=== PATIENT | female | born 1970 | race Caucasian/White ===

== ENCOUNTER 2021-05-04 12:52 | Emergency (ER) | payer MEDICAID ==
[~2021-05-04] VITALS: Ht 162.6 cm; Wt 61.2 kg
[2021-05-04 14:00] VITALS: BP 103/84
[2021-05-04] MEDS ORDERED: HYDROcodone/APAP 5/325 MG 1 TAB TAB PO ONE (14:00)
[2021-05-04] MEDS ORDERED: ACET-8386 PO (15:02)
[2021-05-04 15:19] VITALS: BP 132/70
== END 2021-05-04 15:20 | disposition home or self-care (01) ==
LOC: MED 12:52
DX: R51.9 Headache, unspecified (principal); I10 Essential (primary) hypertension; D64.9 Anemia, unspecified; E07.9 Disorder of thyroid, unspecified; Z79.899 Other long term (current) drug therapy; Z48.00 Encounter for change or removal of nonsurgical wound dressing
CPT/HCPCS: 70450; 99284

== ENCOUNTER 2022-12-30 16:08 | Emergency (ER) | payer MEDICAID, OTHER ==
[~2022-12-30] VITALS: Ht 154.9 cm; Wt 48.5 kg
[~2022-12-30 16:08] MED LIST: ACET-8905 PO
[2022-12-30 16:57] VITALS: BP 90/55; PULSE 59; RESP 18; TEMP 97.9; O2SAT 97
[2022-12-30] MEDS ORDERED: MORPHINE SULFATE 4 MG/ML SYR IM ONE (17:20)
[2022-12-30] MEDS ORDERED: MORPHINE SULFATE 4 MG/ML SYR ONE (18:26)
[2022-12-30] MEDS ORDERED: TRAM-748 PO (19:16)
[2022-12-30 19:44] VITALS: BP 108/58; PULSE 61; RESP 16; TEMP 97.9; O2SAT 97
== END 2022-12-30 19:44 | disposition home or self-care (01) ==
LOC: MED 16:08
DX: M25.552 Pain in left hip (principal); E03.9 Hypothyroidism, unspecified; I12.9 Hypertensive chronic kidney disease with stage 1 through stage 4 chronic kidney disease, or unspecified chronic kidney disease; N18.9 Chronic kidney disease, unspecified; Z79.899 Other long term (current) drug therapy
CPT/HCPCS: 73502; 96372; 99283; J2270

== ENCOUNTER 2023-04-16 12:12 | Inpatient (IN) | payer OTHER ==
[~2023-04-16] VITALS: Ht 152.4 cm; Wt 49.4 kg
[~2023-04-16 12:12] MED LIST changes: +TRAM-748 PO
[2023-04-16 12:22] VITALS: BP 101/59; PULSE 59; RESP 18; TEMP 97.9; O2SAT 96
[2023-04-16 13:51] LABS: BASOPHILS % (AUTO) 0.2 % (0.0-2.0); HEMATOCRIT 33.9 % (36-48); HEMOGLOBIN 10.9 g/dL (12.0-16.0); LYMPHOCYTES # (AUTO) 0.6 K/uL (2.5-16.5); LYMPHOCYTES % (AUTO) 4.9 % (20.5-51.1); MEAN CORPUSCULAR HEMOGLOBIN 28 pg (27-31); MEAN CORPUSCULAR HGB CONC 32 g/dL (33-37); MEAN CORPUSCULAR VOLUME 85.6 fL (80-94); MONOCYTES # (AUTO) 0.3 K/uL (0.8-1.0); MONOCYTES % (AUTO) 2.4 % (1.7-9.3); NEUTROPHILS # (AUTO) 11.1 K/uL (1.8-7.7); NEUTROPHILS % (AUTO) 92.5 % (42.2-75.2); PLATELET COUNT (AUTO) 375 K/uL (140-450); RED BLOOD CELL COUNT(AUTO) 3.96 MIL/uL (4.20-5.40); RED CELL DISTRIBUTION WIDTH 14.9 % (11.6-13.7)
[2023-04-16 14:08] LABS: INR 0.93 (0.8-1.2); PARTIAL THROMBOPLASTIN TIME 29.1 secs (22-35.6); PROTHROMBIN TIME 9.8 secs (10.8-13.4)
[2023-04-16 14:20] LABS: ANION GAP 14.5 (8-16); CALCIUM 8.6 mg/dL (8.5-10.1); CARBON DIOXIDE 24.8 mmol/L (21-32); CREATININE 2.2 mg/dL (0.6-1.3); POTASSIUM 3.3 mmol/L (3.5-5.1)
[2023-04-16 14:21] LABS: APPEARANCE,URINE SL CLOUDY (CLEAR); BILIRUBIN,URINE NEGATIVE (NEGATIVE); BLOOD, URINE NEGATIVE (NEGATIVE); COLOR,URINE YELLOW (YELLOW); LEUKOCYTE ESTERASE ,URINE 2+ (NEGATIVE); NITRITE, URINE NEGATIVE (NEGATIVE); PROTEIN,URINE TRACE (NEGATIVE); UGLUCOSE NEGATIVE (NEGATIVE); UROBILINOGEN,URINE 0.2 EU/dL (0.2 - 1)
[2023-04-16 14:35] LABS: BACTERIA,URINE >30 (MANY) /HPF (None Seen); RBC,URINE 0-5 /HPF (0-5); SQUAMOUS EPITHELIAL CELL,UR 0-3 (FEW) /LPF (0-3 (FEW)); WBC,URINE 16-25 (MOD) /HPF (0-5)
[2023-04-16 16:22] VITALS: O2SAT 93
[2023-04-16] MEDS ORDERED: cefTRIAXone 1,000 MG VIAL ONE (16:49)
[2023-04-16] MEDS ORDERED: ONDANSETRON 4 MG/2 ML VIAL IVP PRN (16:55)
[2023-04-16] MEDS ORDERED: KCL 20 MEQ IN 100 mL PREMIX 200 ML IV PRN (16:55)
[2023-04-16] MEDS ORDERED: POTASSIUM CHLORIDE 10 MEQ TABER PO PRN (16:55)
[2023-04-16] MEDS ORDERED: ACETAMINOPHEN 325 MG TAB PO PRN (16:55)
[2023-04-16] MEDS ORDERED: HYDROcodone/APAP 5/325 MG 1 TAB TAB PO PRN (16:55)
[2023-04-16] MEDS ORDERED: MAG SULF 2000 MG/WATER PREMIX 50 ML IV PRN (16:55)
[2023-04-16] MEDS ORDERED: MORPHINE SULFATE 2 MG/ML SYR IVP PRN (16:55)
[2023-04-16] MEDS ORDERED: MAGNESIUM OXIDE 400 MG TAB PO PRN (16:55)
[2023-04-16] MEDS ORDERED: TRAZ-471 PO (17:07)
[2023-04-16] MEDS ORDERED: [UNRECOGNIZED DRUG - CODE] PO (17:07)
[2023-04-16] MEDS ORDERED: LIDO1ADH38 TP (17:07)
[2023-04-16] MEDS ORDERED: OXYB15TA2 PO (17:07)
[2023-04-16] MEDS ORDERED: METH-1866 PO (17:07)
[2023-04-16] MEDS ORDERED: LEVO0.133 PO (17:07)
[2023-04-16] MEDS ORDERED: TRAM50TA4 PO (17:07)
[2023-04-16] MEDS ORDERED: FLUO40CA6 PO (17:28)
[2023-04-16] MEDS ORDERED: HYDR-1100 PO (17:28)
[2023-04-16] MEDS ORDERED: BISA-213 RC (17:28)
[2023-04-16] MEDS ORDERED: ACET-2619 PO (17:28)
[2023-04-16] MEDS ORDERED: LEVO137C2 PO (17:28)
[2023-04-16] MEDS ORDERED: VITB12 PO (17:28)
[2023-04-16] MEDS ORDERED: PRED20TA6 PO (17:28)
[2023-04-16] MEDS ORDERED: MIRABULK PO (17:28)
[2023-04-16] MEDS ORDERED: NALO4SPR3 NS (17:28)
[2023-04-16] MEDS ORDERED: PANT20EC18 PO (17:28)
[2023-04-16] MEDS ORDERED: OMEP20EC11 PO (17:28)
[2023-04-16] MEDS ORDERED: AMLO10TA PO (17:28)
[2023-04-16] MEDS ORDERED: MAGN400S60 PO (17:28)
[2023-04-16] MEDS ORDERED: PANT40EC PO (17:28)
[2023-04-16] MEDS ORDERED: [UNRECOGNIZED DRUG - CODE] PO (17:28)
[2023-04-16] MEDS ORDERED: FOLI0.8T33 PO (17:28)
[2023-04-16] MEDS ORDERED: MELA1TAB32 PO (17:28)
[2023-04-16] MEDS ORDERED: OXYC-304 PO (17:28)
[2023-04-16 18:22] VITALS: O2SAT 93
[2023-04-16 20:57] VITALS: BP 131/74; PULSE 70; PULSE 71; RESP 18; TEMP 98.4; O2SAT 93
[2023-04-16] MEDS ORDERED: NACL 0.9% 1,000 ML IV SCH (22:25)
[2023-04-17] VITALS: BP 149/79; PULSE 73; PULSE 76; RESP 20; TEMP 98; O2SAT 95
[2023-04-17 04:00] VITALS: BP 144/84; PULSE 68; PULSE 72; RESP 20; TEMP 97.2; O2SAT 94
[2023-04-17] MEDS ORDERED: HYDRAGUARD CREAM TP ONE (04:37)
[2023-04-17] MEDS ORDERED: HYDRAGUARD CREAM TP PRN (04:50)
[2023-04-17 06:24] LABS: BASOPHILS % (AUTO) 0.1 % (0.0-2.0); HEMATOCRIT 31.1 % (36-48); HEMOGLOBIN 10.2 g/dL (12.0-16.0); LYMPHOCYTES # (AUTO) 0.3 K/uL (2.5-16.5); LYMPHOCYTES % (AUTO) 3.1 % (20.5-51.1); MEAN CORPUSCULAR HEMOGLOBIN 28 pg (27-31); MEAN CORPUSCULAR HGB CONC 33 g/dL (33-37); MEAN CORPUSCULAR VOLUME 85.4 fL (80-94); MONOCYTES # (AUTO) 0.7 K/uL (0.8-1.0); MONOCYTES % (AUTO) 6.6 % (1.7-9.3); NEUTROPHILS # (AUTO) 9.8 K/uL (1.8-7.7); NEUTROPHILS % (AUTO) 90.2 % (42.2-75.2); PLATELET COUNT (AUTO) 333 K/uL (140-450); RED BLOOD CELL COUNT(AUTO) 3.65 MIL/uL (4.20-5.40); WHITE BLOOD COUNT (AUTO) 10.9 K/uL (4.8-10.8)
[2023-04-17] MEDS ORDERED: LEVOTHYROXINE 0.075 MG TAB PO SCH (06:30)
[2023-04-17 06:45] LABS: ALBUMIN 2.1 g/dL (3.4-5.0); ANION GAP 13.1 (8-16); CALCIUM 8.5 mg/dL (8.5-10.1); CARBON DIOXIDE 24.4 mmol/L (21-32); CREATININE 1.8 mg/dL (0.6-1.3); MAGNESIUM 1.9 mg/dL (1.8-2.4); POTASSIUM 4.5 mmol/L (3.5-5.1); TOTAL BILIRUBIN 0.3 mg/dL (0.0-1.0); TOTAL PROTEIN, SERUM 5.9 g/dL (6.4-8.2)
[2023-04-17 08:00] VITALS: BP 153/82; PULSE 69; PULSE 84; RESP 16; TEMP 96.8; O2SAT 97
[2023-04-17] MEDS ORDERED: FLUoxetine 20 MG CAP PO SCH (09:00)
[2023-04-17] MEDS ORDERED: PANTOPRAZOLE 40 MG TABEC PO SCH (09:00)
[2023-04-17] MEDS ORDERED: VIT-B COMP/VIT-C/FOLIC ACID 1 TAB PO SCH (09:00)
[2023-04-17] MEDS ORDERED: amLODIPine 5 MG TAB PO SCH (09:00)
[2023-04-17] MEDS ORDERED: CYANOCOBALAMIN 100 MCG TAB PO SCH (09:00)
[2023-04-17] MEDS ORDERED: CEFD300C3 PO (09:28)
[2023-04-17 12:00] VITALS: BP 138/77; PULSE 63; PULSE 67; RESP 16; TEMP 97.3; O2SAT 97
[2023-04-17] MEDS ORDERED: HYDRAGUARD CREAM TP SCH (13:00)
[2023-04-17 15:30] VITALS: BP 138/77; PULSE 63; RESP 16; TEMP 97.3
[2023-04-17 16:00] VITALS: BP 121/64; PULSE 62; PULSE 64; RESP 17; TEMP 97.4; O2SAT 96
== END 2023-04-17 20:00 | disposition home or self-care (01) ==
LOC: MED 12:12 → MMU 16:59 → MTU 19:59
PROVIDERS: ADMIT Internal Medicine; ATTEND Internal Medicine
DX: K80.20 Calculus of gallbladder without cholecystitis without obstruction (principal); N17.9 Acute kidney failure, unspecified; J90 Pleural effusion, not elsewhere classified; E86.0 Dehydration; M48.55XA Collapsed vertebra, not elsewhere classified, thoracolumbar region, initial encounter for fracture; N39.0 Urinary tract infection, site not specified; E03.9 Hypothyroidism, unspecified; G89.4 Chronic pain syndrome; I12.9 Hypertensive chronic kidney disease with stage 1 through stage 4 chronic kidney disease, or unspecified chronic kidney disease; N18.4 Chronic kidney disease, stage 4 (severe); B96.20 Unspecified Escherichia coli [E. coli] as the cause of diseases classified elsewhere; R07.89 Other chest pain; M06.9 Rheumatoid arthritis, unspecified
CPT/HCPCS: 36415; 71045; 71250; 76604; 80048; 80053; 81001; 83735; 84484; 85025; 85610; 85730; 87081; 87086; 93005; 96365; 99285; J0696; J1644; J2270; J7060; Q0092